=== PATIENT | female | born 1990 ===

== ENCOUNTER 2017-09-11 15:16 | Emergency (ER) | payer BC, OTHER ==
--- OUTSIDE RECORDS SUMMARY | 2017-09-11 15:25 | XMS REPORT ---
:1990 Author Organization [facility] Address [address] [place] [address] Care Team Providers Name Role Phone Ana Laura Collazo Unavailable Unavailable PROBLEMS Type Condition ICD9-CM Code PUN03-CD Code Onset Condition SNOMED Code Dates Status Problem Other specified N94.89 Active 766401443 conditions associated with female genital organs and menstrual cycle Problem Family history of Z80.41 Active 449518903 malignant neoplasm of ovary Problem Galactorrhea not N64.3 Active 11297524 associated with childbirth Problem Family history of Z80.3 Active 887727835 malignant neoplasm of breast ALLERGIES No Known Allergies ENCOUNTERS Encounter Location Date Diagnosis [facility] [address] Jul, OBGYN [place], [place] [id number] [facility] [address] [facility] Jul, Encounter for routine [address] [place], checking of intrauterine [place] [id number] contraceptive device Z30.431 [facility] [address] June, OBGYN [place], [place] [id number] [facility] 103 June, Encounter for insertion OBGYN [facility], of intrauterine [place] [id number] contraceptive device Z30.430 [facility] [address] Apr, OBGYN [place], [place] [id number] [facility] [address] Apr, OBGYN [place], [place] [id number] [facility] Apr, Family history of OBGYN [facility], malignant neoplasm [place] [id number] breast Z80.3 ; Family history of malignant neoplasm of ovary Z80.41 and Encounter for other general counseling and advice on contraception Z30.09 [facility] [address] Apr, Family history of OBGYN [facility], malignant [place]oplasm [place] [id number] ovary Z80.41 and Other specified conditions associated with female genital organs and menstrual cycle N94.89 [place] [facility] [address] [facility] Sep, Encounter for Road [address] [place], gynecological examination [place] [id number] (general) (routine) without abnormal findings Z01.419 ; Encounter for other general counseling and advice on contraception Z30.09 ; Family history of malignant neoplasm of breast Z80.3 ; Family history of malignant neoplasm of ovary Z80.41 and Unspecified ovarian cyst, right side N83.201 [place] [facility] [address] Sep, OBGYN [place] [id number] [facility] [facility] Aug, Encounter for other OBGYN [facility], general counseling and [place] [id number] advice on contraception Z30.09 [place] [facility] 103 Aug, OBGYN [place], [place] [id number] [place] [facility] 103 14 Aug, 2015 Galactorrhea O92.6 [facility] [place], [place] [id number] [place] [facility] 103 Aug, OBGYN [place] [id number] [place] [facility] 103 Jul, Encounter for OBGYN [facility], gynecological examination [place] [id number] (general) (routine) with abnormal findings Z01.411 ; Galactorrhea not associated with childbirth N64.3 ; Encounter for other general counseling and advice on contraception Z30.09 ; Encounter for screening for malignant neoplasm of cervix Z12.4 and Family history of malignant neoplasm of breast Z80.3 [facility] 103 Jul, Encounter for other OBGYN [facility], general counseling and [place] [id number] advice on contraception Z30.09 [facility] 103 Jul, GYNECOLOGIC EXAMINATION OBGYN [facility], V72.31 [place] [id number] [place] [facility] 103 18 Jul, 2014 ROUTINE BROADCAST TRAFFIC COORDINATOR EXAMINATION OBGYN [facility], V72.31 [place] [id number] [facility] 103 Sep, FAMILY PLANNING V25.09 OBGYN [place], [place] [id number] [facility] 103 16 Jul, 2013 ROUTINE BROADCAST TRAFFIC COORDINATOR EXAMINATION OBGYN [facility], V72.31 ; STD Screen V74.5 [place] [id number] and FAMILY PLANNING V25.09 [facility] 103 28 Jul, 2012 OBGYN [place], [place] [id number] [facility] 103 14 Jul, 2012 ROUTINE BROADCAST TRAFFIC COORDINATOR EXAMINATION OBGYN [facility], V72.31 ; PAP SMEAR W/O [place] [id number] BROADCAST TRAFFIC COORDINATOR EXAM V76.2 and STD Screen V74.5 [facility] 103 Nov, STD Screen V74.5 OBGYN [place], [place] [id number] IMMUNIZATIONS No Known Immunizations SOCIAL HISTORY Never Assessed REASON FOR REFERRAL FUNCTIONAL STATUS PLAN OF CARE Activity Details Follow Up annual & 11-14 Reason: VITAL SIGNS Height 65 in 2017-08-18 Weight 112 lbs 2017-08-18 BMI 18.64 kg/m2 2017-08-18 Blood pressure systolic 100 mm Hg 2017-08-18 Blood pressure diastolic 60 mm Hg 2017-08-18 MEDICATIONS Medication Instructions Dosage Frequency Start End Date Duration Status Date Kyleena 19.5 by intrauterine 1 ea Active mg administration once Lexapro 25mg orally once a day 1 tab(s) 24h 30 day(s) Active PROCEDURES No Known procedures RESULTS No Results REASON FOR VISIT 4 week string check MEDICAL (GENERAL) HISTORY Type Description Date Medical History Heart palpitations Medical History Anxiety/ Derpession Surgical History Breast ductal polyps removed- benign 2015
[2017-09-11 15:30] VITALS: BP 106/56
[2017-09-11] MEDS ORDERED: Tetan/Diph/Pertus SYR(Tdap)* 0.5 ML SYR(BOOSTRIX) use SYR IM ONE (15:45)
--- NOTE | 2017-09-11 15:45 | UC ---
Hand/Wrist HPI - HPI Summary HPI Summary: Patient states that her horse got spooked yesterday in her right hand was smashed by a clip that broke off. She noted instant swelling and pain to the back of her right hand afterwards. She has ongoing pain and swelling today. 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 She denies any numbness or weakness. She does know a couple of abrasions but states they were superficial. She did wash the wound immediately after as well as today. She has no idea when she last had a tetanus shot, including no idea if it was within the past 10 years. She denies any other injuries offers no other complaints. - History Of Current Complaint Chief Complaint: UCUpperExtremity Stated Complaint: RIGHT HAND INJURY Time Seen by Provider: 09/11/17 15:31 Hx Obtained From: Patient Hx Last Menstrual Period: 09/08/17 Onset/Duration: Sudden Onset Pain Intensity: 8 Aggravating Factor(s): Movement Alleviating Factor(s): Rest Associated Signs And Symptoms: Positive: Swelling, Bruising. Negative: Redness , Fever, Weakness, Numbness/Tingling - Allergies/Home Medications Allergies/Adverse Reactions: Allergies Allergy/AdvReac Type Severity Reaction Status Date / Time contrast dye Allergy Intermediate Hives Uncoded 09/11/17 15:30 Home Medications: Home Medications Levonorgestrel (Iud) [Kyleena IUD] 17.5 mcg IU DAILY 09/11/17 [History Confirmed 09/11/17] clonazePAM TAB(*) [KlonoPIN TAB(*)] 0.5 mg PO BEDTIME 09/11/17 [History Confirmed 09/11/17] PMH/Surg Hx/FS Hx/Imm Hx Psychological History: Anxiety, Depression - Surgical History Surgical History: None Surgery Procedure, Year, and Place: 09/11 BREAST BX - Family History Known Family History: Positive: None - Social History Occupation: Employed Full-time Alcohol Use: Rare Alcohol Amount: WINE Substance Use Type: None Smoking Status (MU): Never Smoked Tobacco - Immunization History Hx Tetanus, Diphtheria Vaccination: No Vaccination Up to Date: Yes Review of Systems Constitutional: Negative Skin: Negative Eyes: Negative ENT: Negative Respiratory: Negative Cardiovascular: Negative Gastrointestinal: Negative Genitourinary: Negative Motor: Negative Neurovascular: Negative Musculoskeletal: Other: - pain/swelling R hand Neurological: Negative Psychological: Negative Is Patient Immunocompromised?: No All Other Systems Reviewed And Are Negative: Yes Physical Exam Triage Information Reviewed: Yes Appearance: Well-Appearing Vital Signs: Initial Vital Signs Temp 99.4 F 09/11/17 15:24 Pulse 51 09/11/17 15:24 Resp 16 09/11/17 15:24 BP 106/56 09/11/17 15:24 Pulse Ox 100 09/11/17 15:24 Vital Signs Reviewed: Yes Eyes: Positive: Conjunctiva Clear ENT: Positive: Normal ENT inspection Neck: Positive: Supple, Nontender, No Lymphadenopathy Respiratory: Positive: Lungs clear, Normal breath sounds Cardiovascular: Positive: RRR, No Murmur Abdomen Description: Positive: Nontender, No Organomegaly, Soft Bowel Sounds: Positive: Present Musculoskeletal: Positive: Other: - Right upper extremity exam: Shoulder, elbow and forearm are atraumatic. Wrist is without tenderness or deformity including snuffbox. Right dorsal hand has 2 superficial abrasions, mild swelling and tenderness to the radial side. Fingers are nontender and have full sensorivascular motor function. The hand has no erythema or warmth and there is no streaking. Neurological: Positive: Alert Psychological: Positive: Age Appropriate Behavior Skin Exam: Normal Diagnostics - Radiology No standard instances Radiology Interpretation Completed By: Radiologist - Soft tissue swelling over the dorsum of the hand at the level of the metacarpals and metacarpal phalangeal joints. No conspicuous foreign body or subcutaneous emphysema. Negative for fracture or malalignment. Hand/Wrist Course/Dx - Course Course Of Treatment: no fx or dislocation and no concern for infection. - Differential Dx/Diagnosis Provider Diagnoses: Contusion R hand. Abrasions R hand Discharge - Sign-Out/Discharge Documenting (check all that apply): Patient Departure - Discharge Plan Condition: Stable Disposition: HOME Patient Education Materials: Contusion in Adults (ED), Abrasion (ED) Referrals: No Primary Care Phys,NOPCP [Primary Care Provider] - Additional Instructions: FOLLOW UP [facility] IN 5 - 7 DAYS IF NEEDED OR SOONER IF WORSE. - Billing Disposition and Condition Condition: STABLE Disposition: Home Attestation Statement User Type: Provider - I was available for consult. This patient was seen by the GIOVANNA. The patient was not presented to, seen by, or examined by me. -Flakita
--- NOTE | 2017-09-11 16:05 | RAD ---
INDICATION: RIGHT hand metacarpal region pain, bruising, swelling following injury yesterday. COMPARISON: No relevant prior exams available on the [facility] PACS for comparison. TECHNIQUE: AP, lateral, and oblique views RIGHT hand. REPORT AND IMPRESSION: #. Soft tissue swelling over the dorsum of the hand at the level of the metacarpals and metacarpal phalangeal joints. No conspicuous foreign body or subcutaneous emphysema. Negative for fracture or malalignment. R0
== END 2017-09-11 16:18 | disposition home or self-care (01) ==
LOC: UCCORT 15:16
DX: S60.221A Contusion of right hand, initial encounter (principal); S60.511A Abrasion of right hand, initial encounter; F41.9 Anxiety disorder, unspecified; F32.9 Major depressive disorder, single episode, unspecified; W22.8XXA Striking against or struck by other objects, initial encounter; Y92.9 Unspecified place or not applicable
CPT/HCPCS: 90471; 90715; 99212; G0463